=== PATIENT | male | born 2000 | race Caucasian/White ===

== ENCOUNTER 2024-12-28 00:14 | Emergency (ER) | payer MEDICAID ==
[~2024-12-28] VITALS: Ht 165.1 cm; Wt 60.0 kg
[2024-12-28 00:43] VITALS: O2SAT 96
[2024-12-28] MEDS: ACETAMINOPHEN 325MG TABLET PO ONE (01:24)
[2024-12-28] MEDS ORDERED: IBUP-2028 MT (03:13)
[2024-12-28 03:28] VITALS: BP 112/78; PULSE 88; RESP 20; TEMP 36.8; O2SAT 97
== END 2024-12-28 03:34 | disposition home or self-care (01) ==
LOC: ER 00:14
DX: B34.9 Viral infection, unspecified (principal)
CPT/HCPCS: 71045; 99283; 99285